=== PATIENT | male | born 1950 | race Caucasian/White ===

== ENCOUNTER 2020-10-28 08:32 | Emergency (ER) | payer MEDICARE | END 2020-10-28 09:35 | disposition home or self-care (01) | LOC: NAV ERS 08:32 | DX: L23.7 Allergic contact dermatitis due to plants, except food (principal); F17.210 Nicotine dependence, cigarettes, uncomplicated | CPT/HCPCS: 99283 ==

== ENCOUNTER 2023-04-27 12:13 | Outpatient (CLI) | payer MEDICARE, OTHER | END 2023-04-27 12:14 | disposition home or self-care (01) | LOC: NAV RAD 12:13 | PROVIDERS: ATTEND Nurse Practitioner Family | DX: R05.3 Chronic cough (principal); I51.7 Cardiomegaly | CPT/HCPCS: 71046 ==